=== PATIENT | female | born 1960 | race Caucasian/White ===

== ENCOUNTER 2016-05-03 20:09 | Observation (INO) ==
[2016-05-03] MEDS ORDERED: Ipratropium/Albuterol Neb 3 ML IH ONE (20:45)
[2016-05-03] MEDS ORDERED: Albuterol 2.5 MG/3 ML NEBULIZER IH ONE (20:45)
[2016-05-03 21:15] LABS: Basophils % 0.2 %; Hematocrit 31.8 % (35.3-44.9); Hemoglobin 11.1 g/dL (11.5-15.4); Immature Granulocytes % 0.6 % (0-4); Lymphocytes # 0.8 K/mcL (0.6-4.6); Mean Corpuscular HGB Conc 34.9 g/dL (31.6-35.5); Mean Corpuscular Hemoglobin 32.2 pg (28.0-33.3); Mean Corpuscular Volume 92.2 fL (83.0-100.0); Mean Platelet Volume 11.3 fL (9.4-12.4); Monocytes # 0.2 K/mcL (0.0-1.3); Monocytes % 3.7 %; Neutrophils # 4.1 K/mcL (1.6-8.9); Nucleated Red Blood Cells 0.6 /100 WBC (0); Red Blood Count 3.45 M/mcL (3.82-4.97); Red Cell Distribution Width 13.1 % (11.5-14.5); Segmented Neutrophils % 80.5 %
[2016-05-03 21:16] LABS: Platelet Count 69 K/mcL (140-400)
[2016-05-03 21:18] LABS: Platelet Estimate Decreased (Normal)
[2016-05-03 21:34] LABS: Alanine Aminotransferase 6 Units/L (0-55); Albumin 3.3 g/dL (3.5-5.0); Albumin/Globulin Ratio 0.8 (1.1-2.2); Alkaline Phosphatase 70 Units/L (38-126); Aspartate Amino Transferase 8 Units/L (5-34); BUN/Creatinine Ratio 7 (6-26); Bilirubin,Total 0.3 mg/dL (0.2-1.2); Blood Urea Nitrogen 4 mg/dL (7-20); Calcium 9.1 mg/dL (8.6-10.8); Carbon Dioxide 29 mEq/L (19-29); Chloride 81 mEq/L (98-109); Globulin 4.3 g/dL (2.4-3.5); Glucose 145 mg/dL (70-99); Osmolality,Calculated 253 (280-300); Potassium 4.4 mEq/L (3.5-4.5); Sodium 122 mEq/L (136-145); Total Protein 7.6 g/dL (6.0-8.3); eGFR For African Americans > 60 (> 60); eGFR For Non-African Americans > 60 (> 60)
[2016-05-03] MEDS ORDERED: Azithromycin 500 MG in D5% in Water 250 ML IVPB ONE (22:32)
[2016-05-03] MEDS ORDERED: CefTRIAXone 1,000 MG in D5% in Water (Mini-Bag+) 100 ML IVPB ONE (22:32)
--- NOTE | 2016-05-03 22:46 | Emergency Department Note ---
Disposition Clinical Impression: Pneumonia Qualifiers: Pneumonia type: due to unspecified organism Laterality: bilateral Lung location : lower lobe of lung Qualified Code(s): J18.9 - Pneumonia, unspecified organism Disposition: Admitted As Inpatient Condition: Good Referrals: Arnold Meraz DO [Primary Care Provider] - Forms: ED Satisfaction Letter Time of Disposition: 22:49 SOB HPI - General Chief Complaint: ED Shortness of Breath/Dyspnea Stated Complaint: Dyspnea onset 2 weeks Time Seen by Provider: 05/03/16 20:35 Source: patient Mode of arrival: ambulatory Limitations: no limitations Nursing Notes Reviewed: Yes Vital Signs Reviewed: Yes - History of Present Illness 55-year-old white female with a four-day history of a cough and difficulty breathing. Her cough is productive yellow sputum. She denies chest pain. No fever. She feels weaker than usual. She short of breath with any exertion. She saw her primary care provider today who felt that she had pneumonia. She did get the flu vaccine. Pt Subjective Complaint: shortness of breath, cough Onset (ago): day(s) Context: recent illness (4) Severity: moderate Consistency/Duration: constant Improves with: oxygen, rest Worsens with: lying flat, movement, coughing Known history of: COPD, congestive heart failure Associated symptoms: Reports: denies other symptoms Treatment prior to arrival: oxygen, bronchodilator Cough present: Yes Cough Description: Involuntary Cough Frequency: Intermittent Sputum production: Yes Sputum Color: Yellow - Related Data Home oxygen amount: 3 liters Home Medications Medication Instructions Recorded Confirmed Butalb/Acetaminophen/Caffeine 1 each PO Q4HR PRN 05/06/15 05/03/16 [Fioricet 50-300-40 mg Capsule] Carvedilol [Coreg] 6.25 mg PO BIDWM 05/06/15 05/03/16 Cholecalciferol (Vitamin D3) 4,000 unit PO DAILY 05/06/15 05/03/16 [Vitamin D3] Clopidogrel [Plavix] 75 mg PO DAILY 05/06/15 05/03/16 Divalproex Sodium [Depakote] 500 mg PO TID 05/06/15 05/03/16 Gabapentin [Neurontin] 300 mg PO TID 05/06/15 05/03/16 Isosorbide MONOnitrate [Isosorbide 120 mg PO DAILY 05/06/15 05/03/16 Mononitrate ER] LevETIRAcetam [Keppra] 500 mg PO BID 05/06/15 05/03/16 Levothyroxine Sodium [Tirosint] 112 mcg PO DAILY 05/06/15 05/03/16 Nystatin POWDER [Nystop] 100,000 unit TP DAILY PRN 05/06/15 05/03/16 Olopatadine HCl [Pataday] 1 pack BOTH EYES DAILY PRN 05/06/15 05/03/16 Oxybutynin Chloride [Ditropan Xl] 10 mg PO BID 05/06/15 05/03/16 Oxygen 3 appl .ROUTE AD 05/06/15 05/03/16 Phenytoin Sodium Extended 200 mg PO TID 05/06/15 05/03/16 [Phenytek] Potassium Chloride [Klor-Con] 20 meq PO TID 05/06/15 05/03/16 Pravastatin Sodium [Pravachol] 40 mg PO DAILY 05/06/15 05/03/16 Albuterol Sulfate [Proair Hfa] 2 puff IH Q4H PRN 05/07/15 05/03/16 Fluticasone/Salmeterol [Advair Hfa 2 puff IH BID 05/07/15 05/03/16 230-21 Mcg Inhaler] Tiotropium [Spiriva] 18 mcg IH DAILY 05/07/15 05/03/16 Albuterol Neb [AccuNeb] 0.63 mg IH TID 08/03/15 05/03/16 Alprazolam [Xanax 0.5 MG Tablet] 0.5 mg PO QID 08/03/15 05/03/16 Montelukast [Singulair] 10 mg PO DAILY 08/03/15 05/03/16 Carbidopa/Levodopa 25/250 [Sinemet 1 each PO DAILY 11/30/15 05/03/16 25/250] Roflumilast [Daliresp] 500 mcg PO DAILY 11/30/15 05/03/16 Previous Rx's Medication Instructions Recorded Folic Acid 1 mg PO DAILY #90 tablet 10/06/15 Cyanocobalamin (B-12) [Vitamin B12] 1,000 mcg IM QMONTH #12 vial 04/10/16 Allergies Allergy/AdvReac Type Severity Reaction Status Date / Time haloperidol [From Haldol] AdvReac Numbness Verified 03/21/16 14:04 levofloxacin [From Levaquin] AdvReac Seizure Verified 03/21/16 14:04 ziprasidone [From Geodon] AdvReac Rash Verified 03/21/16 14:04 All systems ED: reviewed and negative except as stated. Constitutional: Denies: fever, chills Eyes: Denies: eye discharge ENT ED: Denies: ear pain, throat pain Cardiovascular: Denies: chest pain Respiratory: Reports: cough, dyspnea, wheezes, sputum production Gastrointestinal: Denies: abdominal pain, nausea, vomiting Integumentary: Denies: rash Neurological: Reports: weakness. Denies: headache Endocrine: Reports: fatigue Past Medical History - Past Medical History Medical history: Reports: non-contributory Surgical history: Reports: non-contributory, hysterectomy Psychiatric history: Reports: no psych history - Social History Smoking Status: Former smoker Smokeless Tobacco Status: No Alcohol use: Reports: none Drug use: Reports: none Physical Exam - General Limitations: no limitations General appearance: alert, in no apparent distress - Head Head exam: atraumatic, normocephalic - Eye Eye exam: Present: PERRL, EOMI. Absent: scleral icterus, conjunctival injection - ENT ENT exam: normal oropharynx, mucous membranes moist - Neck Neck exam: Present: normal inspection, full ROM, trachea midline - Chest Chest inspection: Present: normal inspection, symmetric chest wall rise - Respiratory Respiratory exam: Present: respiratory distress (Mildly dyspneic), wheezes ( Moderate bilateral expiratory), prolonged expiratory phase, other (Increased breath sounds in the bases with basilar rales) - Cardiovascular Cardiovascular exam: Present: regular rate, normal rhythm, normal heart sounds - Abdominal Exam Abdominal exam: Present: soft, Non-Tender, normal bowel sounds, other (Obese) - Extremities Exam Extremities exam: Present: normal capillary refill, pedal edema (Nonpitting edema lower legs feet and ankle). Absent: tenderness, calf tenderness - Neurological Exam Neurological exam: Present: alert, oriented X3. Absent: motor sensory deficit - Psychiatric Psychiatric exam: Present: flat affect - Skin Skin exam: Present: warm, dry, intact. Absent: cyanosis, diaphoresis Course Vital Signs Temperature 98.5 F 05/03/16 20:10 Pulse Rate 114 05/03/16 20:10 Respiratory Rate 20 05/03/16 20:10 Blood Pressure 151/80 05/03/16 20:10 O2 Sat by Pulse Oximetry 95 05/03/16 20:10 Temperature 98.5 F 05/03/16 20:41 Pulse Rate 114 05/03/16 20:41 Respiratory Rate 20 05/03/16 20:41 Blood Pressure 151/80 05/03/16 20:41 O2 Sat by Pulse Oximetry 93 L 05/03/16 20:50 Oxygen Delivery Oxygen Delivery Nasal Cannula Shortness of Breath/Dyspnea - MDM Narrative Medical decision making narrative: The differential includes but is not limited to congestive heart failure, pneumonia, COPD exacerbation, bronchitis with bronchospasm, pneumothorax, pleural effusion. Patient clinical picture and x-ray she either has a bronchitis with bronchospasm or a basilar pneumonia with bronchospasm. I am going to cover for pneumonia. Blood cultures were obtained. She was given Rocephin and azithromycin. She was given bronchodilators and Solu-Medrol. I spoke with Dr. Underwood. He is accepted patient for admission. - Lab Data Lab results reviewed: Yes I reviewed the patient's lab results. Result diagrams: 05/03/16 20:45 05/03/16 21:00 Lab Results 05/03/16 05/03/16 05/03/16 Range/Units 20:45 21:00 21:00 WBC 5.1 (4.3-11.1) K/mcL RBC 3.45 L (3.82-4.97) M/mcL Hgb 11.1 L (11.5-15.4) g/dL Hct 31.8 L (35.3-44.9) % MCV 92.2 (83.0-100.0) fL MCH 32.2 (28.0-33.3) pg MCHC 34.9 (31.6-35.5) g/dL RDW 13.1 (11.5-14.5) % Plt Count 69 L (140-400) K/mcL MPV 11.3 (9.4-12.4) fL Immature Gran % 0.6 (0-4) % Seg Neutrophils % 80.5 % Lymphocytes % 15.0 % Monocytes % 3.7 % Eosinophils % 0.0 % Basophils % 0.2 % Neutrophils # 4.1 (1.6-8.9) K/mcL Lymphocytes # 0.8 (0.6-4.6) K/mcL Monocytes # 0.2 (0.0-1.3) K/mcL Eosinophils # 0.0 (0.0-0.6) K/mcL Basophils # 0.0 (0.0-0.2) K/mcL Nucleated RBCs/100 WBC 0.6 H (0) /100 WBC Platelet Estimate Decreased L (Normal) Sodium 122 L (136-145) mEq/L Potassium 4.4 (3.5-4.5) mEq/L Chloride 81 L (98-109) mEq/L Carbon Dioxide 29 (19-29) mEq/L BUN 4 L (7-20) mg/dL Creatinine 0.58 (0.57-1.11) mg/dL Est GFR ( Amer) > 60 (> 60) Est GFR (Non-Af Amer) > 60 (> 60) BUN/Creatinine Ratio 7 (6-26) Glucose 145 H (70-99) mg/dL Calculated Osmolality 253 L (280-300) Calcium 9.1 (8.6-10.8) mg/dL Total Bilirubin 0.3 (0.2-1.2) mg/dL AST 8 (5-34) Units/L ALT 6 (0-55) Units/L Alkaline Phosphatase 70 (38-126) Units/L Troponin I 0.01 (0-0.03) ng/mL B-Natriuretic Peptide (0-100) pg/mL Serum Total Protein 7.6 (6.0-8.3) g/dL Albumin 3.3 L (3.5-5.0) g/dL Globulin 4.3 H (2.4-3.5) g/dL Albumin/Globulin Ratio 0.8 L (1.1-2.2) 05/03/16 Range/Units 21:00 WBC (4.3-11.1) K/mcL RBC (3.82-4.97) M/mcL Hgb (11.5-15.4) g/dL Hct (35.3-44.9) % MCV (83.0-100.0) fL MCH (28.0-33.3) pg MCHC (31.6-35.5) g/dL RDW (11.5-14.5) % Plt Count (140-400) K/mcL MPV (9.4-12.4) fL Immature Gran % (0-4) % Seg Neutrophils % % Lymphocytes % % Monocytes % % Eosinophils % % Basophils % % Neutrophils # (1.6-8.9) K/mcL Lymphocytes # (0.6-4.6) K/mcL Monocytes # (0.0-1.3) K/mcL Eosinophils # (0.0-0.6) K/mcL Basophils # (0.0-0.2) K/mcL Nucleated RBCs/100 WBC (0) /100 WBC Platelet Estimate (Normal) Sodium (136-145) mEq/L Potassium (3.5-4.5) mEq/L Chloride (98-109) mEq/L Carbon Dioxide (19-29) mEq/L BUN (7-20) mg/dL Creatinine (0.57-1.11) mg/dL Est GFR ( Amer) (> 60) Est GFR (Non-Af Amer) (> 60) BUN/Creatinine Ratio (6-26) Glucose (70-99) mg/dL Calculated Osmolality (280-300) Calcium (8.6-10.8) mg/dL Total Bilirubin (0.2-1.2) mg/dL AST (5-34) Units/L ALT (0-55) Units/L Alkaline Phosphatase (38-126) Units/L Troponin I (0-0.03) ng/mL B-Natriuretic Peptide 160 H (0-100) pg/mL Serum Total Protein (6.0-8.3) g/dL Albumin (3.5-5.0) g/dL Globulin (2.4-3.5) g/dL Albumin/Globulin Ratio (1.1-2.2) - Radiology Data Radiology results reviewed: Yes I reviewed the patient's radiology results. ITS Impressions Chest X-Ray 05/03/16 20:45 IMPRESSION: Mild increased opacity in the lung bases, either due to soft tissue artifact or developing airspace disease. Mild prominence of the pulmonary vasculature, either due to low lung volumes or mild edema. D/ / Luis Alcaraz MD / Luis Alcaraz MD Interpreting Provider: Luis Alcaraz MD - EKG Data EKG attestation: Yes I reviewed and interpreted this EKG. EKG results narrative: Sinus rhythm rate of 67, poor R-wave progression, age undetermined. Rhythm strip shows a sinus rhythm with a rate of 67, MD interval is 180 ms, QRS 82 ms with no other ectopy as interpreted by me.
[2016-05-04] MEDS ORDERED: Acetaminophen/Butalbital/CaffeineTABLET PO PRN (00:46)
[2016-05-04] MEDS ORDERED: METHYLPREDNISOLONE IVPB SCH (00:46)
[2016-05-04] MEDS ORDERED: Naloxone 0.4 MG/ML INJ IVP PRN (00:46)
[2016-05-04] MEDS ORDERED: SODIUM CHLORIDE 0.9% IVPB SCH (00:46)
[2016-05-04] MEDS ORDERED: [UNRECOGNIZED DRUG - OTHER] OP PRN (00:46)
[2016-05-04] MEDS ORDERED: Nystatin POWDER 30 GM BOTTLE TP PRN (00:46)
[2016-05-04] MEDS: Ipratropium/Albuterol Neb 3 ML IH SCH ×3 (04:28→13:04)
[2016-05-04] MEDS: LevETIRAcetam 250 MG TABLET PO SCH ×2 (08:13→20:46)
[2016-05-04] MEDS: Divalproex (12 HR) 250 MG TABLET PO SCH ×3 (08:14→20:46)
[2016-05-04] MEDS: Cholecalciferol (D-3) 1,000 UNIT TABLET PO SCH (08:14)
[2016-05-04] MEDS: Gabapentin 300 MG CAPSULE PO SCH ×3 (08:15→20:47)
[2016-05-04] MEDS: Isosorbide MONOnitrate (24 HR) 60 MG TAB.ER.24H PO SCH (08:16)
[2016-05-04] MEDS: Folic Acid 1 MG TABLET PO SCH (08:16)
[2016-05-04] MEDS ORDERED: Carbidopa/Levodopa 25/250 TABLET PO SCH (09:00)
[2016-05-04] MEDS ORDERED: Cyanocobalamin (B-12) 1,000 MCG/ML VIAL IM SCH (09:00)
--- NOTE | 2016-05-04 15:16 | Internal Med History&Physical ---
Date of Encounter: 05/04/16 Time of Encounter: 14:40 Assessment and Plan (1) Pneumonia Current visit: Yes Status: Acute She has been started on Rocephin and Zithromax. I will add lactobacillus. Further workup will be done as needed. Qualifiers: Pneumonia type: due to unspecified organism Laterality: bilateral Lung location: lower lobe of lung Qualified Code(s): J18.9 - Pneumonia, unspecified organism (2) Hypothyroidism Current visit: No Status: Chronic We will check TSH in a.m. Her level was 7.493 on 07/30/2015. Qualifiers: Hypothyroidism type: unspecified Qualified Code(s): E03.9 - Hypothyroidism , unspecified (3) HTN (hypertension) Current visit: No Status: Chronic Continue Coreg and monitor blood pressure Qualifiers: Hypertension type: essential hypertension Qualified Code(s): I10 - Essential (primary) hypertension (4) Hyponatremia Current visit: Yes Status: Acute She reports taking Bumex 4 mg twice a day. We will hold this and recheck labs in a.m. (5) Diabetes mellitus Current visit: No Status: Suspected Hemoglobin A1c was 6.0% on 08/17/2015. We will recheck in a.m. Qualifiers: Diabetes mellitus type: type 2 Diabetes mellitus complication status: without complication Diabetes mellitus terminal system operator insulin use: without terminal system operator use Qualified Code(s): E11.9 - Type 2 diabetes mellitus without complications Internal Medicine - H&P: HPI Chief complaint: Dyspnea Admitted From: Home Plans for Post Hospital Care: Home History of present illness: Ms. Ramires is a 55 year old female who came to emergency room stay she had worsening dyspnea over the preceding week. She had cough productive of brown reddish sputum. The dyspnea seemed to worsen on exertion. She was evaluated in emergency room and felt to have possible bibasilar pneumonia. She was admitted to [facility] floor for ongoing care needs. Respiratory history is significant for having smoked from age [age] up to 3 packs per day. She had pulmonary function tests May 2015 which showed obstructive lung disease. She wears oxygen at home 24/ at 3 L/m. She states her breathing has improved since admission but she does not feel quite back to her baseline. Past Med Surg Social Fam HX - Past Medical History Medical history: arthritis, CHF, COPD, DVT, diabetes, hyperlipidemia, hypertension, myocardial infarction, seizures, thyroid disease Psychiatric history: anxiety, depression - Past Surgical History Surgical History: hysterectomy - Social History Smoking Status: Former smoker Smokeless Tobacco Status: No Alcohol use: none Drug use: none Internal Medicine - H&P: Meds Butalb/Acetaminophen/Caffeine [Fioricet 50-300-40 mg Capsule] 1 each PO Q4HR PRN 05/06/15 [History] Carvedilol [Coreg] 6.25 mg PO BIDWM 05/06/15 [History] Cholecalciferol (Vitamin D3) [Vitamin D3] 4,000 unit PO DAILY 05/06/15 [History] Clopidogrel [Plavix] 75 mg PO DAILY 05/06/15 [History] Divalproex Sodium [Depakote] 500 mg PO TID 05/06/15 [History] Gabapentin [Neurontin] 300 mg PO TID 05/06/15 [History] Isosorbide MONOnitrate [Isosorbide Mononitrate ER] 120 mg PO DAILY 05/06/15 [ History] LevETIRAcetam [Keppra] 500 mg PO BID 05/06/15 [History] Levothyroxine Sodium [Tirosint] 112 mcg PO DAILY 05/06/15 [History] Nystatin POWDER [Nystop] 100,000 unit TP DAILY PRN 05/06/15 [History] Olopatadine HCl [Pataday] 1 pack BOTH EYES DAILY PRN 05/06/15 [History] Oxybutynin Chloride [Ditropan Xl] 10 mg PO BID 05/06/15 [History] Oxygen 3 appl .ROUTE AD 05/06/15 [History] Phenytoin Sodium Extended [Phenytek] 200 mg PO TID 05/06/15 [History] Potassium Chloride [Klor-Con] 20 meq PO TID 05/06/15 [History] Pravastatin Sodium [Pravachol] 40 mg PO DAILY 05/06/15 [History] Albuterol Sulfate [Proair Hfa] 2 puff IH Q4H PRN 05/07/15 [History] Fluticasone/Salmeterol [Advair Hfa 230-21 Mcg Inhaler] 2 puff IH BID 05/07/15 [ History] Tiotropium [Spiriva] 18 mcg IH DAILY 05/07/15 [History] Albuterol Neb [AccuNeb] 0.63 mg IH TID 08/03/15 [History] Alprazolam [Xanax 0.5 MG Tablet] 0.5 mg PO QID 08/03/15 [History] Montelukast [Singulair] 10 mg PO DAILY 08/03/15 [History] Folic Acid 1 mg PO DAILY #90 tablet 10/06/15 [Rx] Carbidopa/Levodopa 25/250 [Sinemet 25/250] 1 each PO DAILY 11/30/15 [History] Roflumilast [Daliresp] 500 mcg PO DAILY 11/30/15 [History] Cyanocobalamin (B-12) [Vitamin B12] 1,000 mcg IM QMONTH #12 vial 04/10/16 [Rx] Allergies haloperidol [From Haldol] Adverse Reaction (Verified 03/21/16 14:04) Numbness levofloxacin [From Levaquin] Adverse Reaction (Verified 03/21/16 14:04) Seizure ziprasidone [From Geodon] Adverse Reaction (Verified 03/21/16 14:04) Rash All Systems PM: A 10-system review of systems was performed and is negative for pertinent findings except as documented above in the HPI. Review of systems: Gen.: She states her weight has decreased approximately 24 pounds in the past year, intentionally Cardiovascular: She has history of hypertension and claims she had myocardial infarction at age 25. She states she had a heart catheter in 2009 at [facility] with showed no significant CAD requiring intervention. Echocardiogram was done 06/07 which showed LVEF of 55% with hypokinesis of the basal inferior wall. There was moderate LV diastolic dysfunction. There was mild AF, AI, and MR. She has not had DVT or pulmonary emboli. Respiratory: As per history of present illness GI: She states she has a pancreatic cyst. She denies disorders of her liver gallbladder or exocrine pancreas otherwise : She has had prolapsed bladder and had bladder tuck surgery. She has urge incontinence. She denies other kidney or bladder disorders Neurologic: She is been diagnosed with Parkinson's disease. She has history of seizures with her last seizure more than 3 months ago. She denies large distribution strokes Endocrine: She has hypothyroidism and hyperlipidemia but no known diabetes. Hematology/oncology: She has been diagnosed with anemia and thrombocytopenia felt to be multifactorial in origin. She denies internal malignancies Psychiatric: She has anxiety and bipolar disorder Musculoskeletal: She has rheumatoid arthritis and DJD diagnoses. - Constitutional Vitals: Temp Pulse Resp BP Pulse Ox 97.6 F 58 16 120/74 96 05/04/16 10:58 05/04/16 10:58 05/04/16 13:07 05/04/16 10:58 05/04/16 13:07 Exam: General: She is a well-developed obese female lying in bed who appears in no severe distress at present time HEENT: Head is atraumatic and normocephalic. Eyes: EOMI. There is no scleral icterus. Mouth: Mucosa is moist. Neck: Supple and nontender. There is no thyromegaly or adenopathy noted. Heart: Regular without murmurs gallops or ectopics. Lungs: No wheezes or crackles are heard. Abdomen: Soft and nontender. No masses or guarding are noted. Extremities: There is no cyanosis edema or clubbing noted. Dorsalis pedis and posterior tibial pulses are 1-2 over 2 bilaterally. Neurologic: Mental status: She is talkative and a good historian. Cranial nerves: Smile is symmetric. Forehead wrinkles bilaterally. Tongue protrudes midline. EOMI. Motor: There is no pronator drift. Cerebellar: Finger to nose intact bilaterally. Skin: Warm and dry Internal Med - H&P Results - Labs CBC & Chem 7: 05/03/16 20:45 05/03/16 21:00
--- NOTE | 2016-05-04 18:12 | Electrocardiograph Report ---
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
[2016-05-04] MEDS: Carbidopa/Levodopa 25/250 TABLET PO SCH (20:46)
[2016-05-04] MEDS: Lactobacillus 1 EACH CAP.SPRINK PO SCH (20:47)
[2016-05-04] MEDS ORDERED: CefTRIAXone 1,000 MG in D5% in Water (Mini-Bag+) 100 ML IVPB SCH (22:00)
[2016-05-04] MEDS ORDERED: Azithromycin 500 MG in D5% in Water 250 ML IVPB SCH (23:00)
[2016-05-05 04:37] VITALS: BP 150/70
[2016-05-05 05:46] LABS: Basophils % 0.2 %; Eosinophils % 0.2 %; Hematocrit 31.2 % (35.3-44.9); Hemoglobin 10.7 g/dL (11.5-15.4); Immature Granulocytes % 0.2 % (0-4); Lymphocytes % 33.9 %; Mean Corpuscular HGB Conc 34.3 g/dL (31.6-35.5); Mean Corpuscular Hemoglobin 32.3 pg (28.0-33.3); Mean Corpuscular Volume 94.3 fL (83.0-100.0); Mean Platelet Volume 11.2 fL (9.4-12.4); Monocytes # 1.5 K/mcL (0.0-1.3); Monocytes % 17.3 %; Neutrophils # 4.2 K/mcL (1.6-8.9); Nucleated Red Blood Cells 0.2 /100 WBC (0); Red Blood Count 3.31 M/mcL (3.82-4.97); Red Cell Distribution Width 13.7 % (11.5-14.5); Segmented Neutrophils % 48.2 %
[2016-05-05 06:02] LABS: BUN/Creatinine Ratio 13 (6-26); Blood Urea Nitrogen 8 mg/dL (7-20); Calcium 9.4 mg/dL (8.6-10.8); Carbon Dioxide 31 mEq/L (19-29); Chloride 88 mEq/L (98-109); Glucose 104 mg/dL (70-99); Magnesium 2.1 mg/dL (1.6-2.6); Osmolality,Calculated 269 (280-300); Potassium 4.4 mEq/L (3.5-4.5); Sodium 130 mEq/L (136-145); eGFR For African Americans > 60 (> 60); eGFR For Non-African Americans > 60 (> 60)
[2016-05-05 06:19] LABS: Platelet Count 86 K/mcL (140-400)
[2016-05-05 06:24] LABS: Thyroid Stimulating Hormone 4.499 mcIU/mL (0.350-4.840)
[2016-05-05] MEDS: Divalproex (12 HR) 250 MG TABLET PO SCH (08:15)
[2016-05-05] MEDS: Lactobacillus 1 EACH CAP.SPRINK PO SCH (08:17)
[2016-05-05] MEDS: LevETIRAcetam 250 MG TABLET PO SCH (08:17)
[2016-05-05] MEDS: Folic Acid 1 MG TABLET PO SCH (08:17)
[2016-05-05] MEDS: Cholecalciferol (D-3) 1,000 UNIT TABLET PO SCH (08:18)
[2016-05-05] MEDS: Isosorbide MONOnitrate (24 HR) 60 MG TAB.ER.24H PO SCH (08:18)
[2016-05-05] MEDS: Carbidopa/Levodopa 25/250 TABLET PO SCH (08:19)
[2016-05-05] MEDS: Gabapentin 300 MG CAPSULE PO SCH (08:19)
[2016-05-05 09:02] LABS: Hemoglobin A1C 5.1 %
[2016-05-05] MEDS ORDERED: Albuterol 2.5 MG/3 ML NEBULIZER IH PRN (09:18)
[2016-05-05 09:49] LABS: Folate 14.9 ng/mL (7.0-31.4)
[2016-05-05 11:27] LABS: % Iron Saturation 26 % (15-50); Iron 85 mcg/dL (50-170); Transferrin 230 mg/dL (180-382)
[2016-05-05 11:52] LABS: Ferritin 143 ng/ml (5-204)
--- NOTE | 2016-05-05 12:25 | Discharge Summary ---
Date of Encounter: 05/05/16 Time of Encounter: 12:12 - Discharge Diagnosis (1) Pneumonia Priority: Primary Status: Acute Qualifiers: Pneumonia type: due to unspecified organism Laterality: bilateral Lung location: lower lobe of lung Qualified Code(s): J18.9 - Pneumonia, unspecified organism (2) Hypothyroidism Priority: Secondary Status: Chronic Qualifiers: Hypothyroidism type: unspecified Qualified Code(s): E03.9 - Hypothyroidism , unspecified (3) HTN (hypertension) Priority: Secondary Status: Chronic Qualifiers: Hypertension type: essential hypertension Qualified Code(s): I10 - Essential (primary) hypertension (4) Hyponatremia Priority: Secondary Status: Acute (5) Diabetes mellitus Priority: Secondary Status: Suspected Qualifiers: Diabetes mellitus type: type 2 Diabetes mellitus complication status: without complication Diabetes mellitus extermination supervisor insulin use: without penitentiary use Qualified Code(s): E11.9 - Type 2 diabetes mellitus without complications - Discharge Medications Prescriptions: Cefuroxime PO [Ceftin] 500 mg PO Q12HR #10 tablet Azithromycin [Zithromax] 250 mg PO Q24H #5 tablet Bumetanide [Bumex] 2 mg PO DAILY 365 Days Lactobacillus [Culturelle] 1 each PO BID #10 cap.sprink Home Medications: Butalb/Acetaminophen/Caffeine [Fioricet 50-300-40 mg Capsule] 1 each PO Q4HR PRN 05/06/15 [History] Carvedilol [Coreg] 6.25 mg PO BIDWM 05/06/15 [History] Cholecalciferol (Vitamin D3) [Vitamin D3] 4,000 unit PO DAILY 05/06/15 [History] Clopidogrel [Plavix] 75 mg PO DAILY 05/06/15 [History] Divalproex Sodium [Depakote] 500 mg PO TID 05/06/15 [History] Gabapentin [Neurontin] 300 mg PO TID 05/06/15 [History] Isosorbide MONOnitrate [Isosorbide Mononitrate ER] 120 mg PO DAILY 05/06/15 [ History] LevETIRAcetam [Keppra] 500 mg PO BID 05/06/15 [History] Levothyroxine Sodium [Tirosint] 112 mcg PO DAILY 05/06/15 [History] Nystatin POWDER [Nystop] 100,000 unit TP DAILY PRN 05/06/15 [History] Olopatadine HCl [Pataday] 1 pack BOTH EYES DAILY PRN 05/06/15 [History] Oxybutynin Chloride [Ditropan Xl] 10 mg PO BID 05/06/15 [History] Oxygen 3 appl .ROUTE AD 05/06/15 [History] Phenytoin Sodium Extended [Phenytek] 200 mg PO TID 05/06/15 [History] Potassium Chloride [Klor-Con] 20 meq PO TID 05/06/15 [History] Pravastatin Sodium [Pravachol] 40 mg PO DAILY 05/06/15 [History] Albuterol Sulfate [Proair Hfa] 2 puff IH Q4H PRN 05/07/15 [History] Fluticasone/Salmeterol [Advair Hfa 230-21 Mcg Inhaler] 2 puff IH BID 05/07/15 [ History] Tiotropium [Spiriva] 18 mcg IH DAILY 05/07/15 [History] Albuterol Neb [AccuNeb] 0.63 mg IH TID 08/03/15 [History] Alprazolam [Xanax 0.5 MG Tablet] 0.5 mg PO QID 08/03/15 [History] Montelukast [Singulair] 10 mg PO DAILY 08/03/15 [History] Folic Acid 1 mg PO DAILY #90 tablet 10/06/15 [Rx] Carbidopa/Levodopa 25/250 [Sinemet 25/250] 1 each PO DAILY 11/30/15 [History] Roflumilast [Daliresp] 500 mcg PO DAILY 11/30/15 [History] Cyanocobalamin (B-12) [Vitamin B12] 1,000 mcg IM QMONTH #12 vial 04/10/16 [Rx] Azithromycin [Zithromax] 250 mg PO Q24H #5 tablet 05/05/16 [Rx] Bumetanide [Bumex] 2 mg PO DAILY 365 Days 05/05/16 [Rx] Cefuroxime PO [Ceftin] 500 mg PO Q12HR #10 tablet 05/05/16 [Rx] Lactobacillus [Culturelle] 1 each PO BID #10 cap.sprink 05/05/16 [Rx] Allergies/Adverse Reactions: Allergies haloperidol [From Haldol] Adverse Reaction (Verified 03/21/16 14:04) Numbness levofloxacin [From Levaquin] Adverse Reaction (Verified 03/21/16 14:04) Seizure ziprasidone [From Geodon] Adverse Reaction (Verified 03/21/16 14:04) Rash Date of admission: 05/04/16 00:36 Primary care physician: Arnold Meraz DO Consults: 05/04/16 01:28 Consult to Release Engineer [CONS] Routine Reason for SW Consult: D/C planning - coordination of care - pt receives services through [address] and homemaking - Patient Status Disposition: Home, Self-Care Condition: Good Overall status at discharge: patient is progressing back to baseline - Discharge Instructions Follow Up With: Arnold Meraz DO [Primary Care Provider] - 1 week - Diet and Activity Activity: resume usual activities as tolerated Diet: advance to your usual diet Hospital course: Ms. Ramires is a 55 year old female who came to emergency room stating she had worsening dyspnea over the preceding week. She had cough productive of brown reddish sputum. The dyspnea seemed to worsen on exertion. She was evaluated in emergency room and felt to have possible bibasilar pneumonia. She was admitted to [facility] floor for ongoing care needs. Initial orders were written by the emergency room physician. I saw her on May 04 and performed a history and physical. She was started on Rocephin and Zithromax. Lactobacillus was given. She remained afebrile during her hospital stay. Her dyspnea had improved when I saw her on May 05 and she felt stable for discharge home which I feel is reasonable. She will continue with antibiotic and probiotic for 5 additional days after discharge. TSH returned normal at 4.499. Her present dose Synthroid will be continued. Her sodium improved to 130 on the day of discharge. She reported taking Bumex 4 mg twice a day at home. I will decrease the dose to 2 mg daily and her PCP can monitor labs as needed. [place] A1c returned to acceptable at 5.1%. She will follow with her PCP Dr. Arnold Meraz within 1 week. - Time Spent with Patient Total time spent providing and/or coordinating discharge services: - Constitutional Vitals: Temp Pulse Resp BP Pulse Ox 99.5 F 66 18 150/70 93 L 05/05/16 11:58 05/05/16 11:58 05/05/16 11:58 05/05/16 04:35 05/05/16 11:58
== END 2016-05-05 14:30 | disposition home or self-care (01) ==
LOC: EMEROOPIK 20:09 → INPPIK 20:09
PROVIDERS: ADMIT Internal Medicine; ATTEND Internal Medicine

== ENCOUNTER 2016-10-14 13:10 | Observation (INO) ==
--- NOTE | 2016-10-14 13:17 | Emergency Department Note ---
Disposition Clinical Impression: Hyponatremia Community acquired pneumonia Qualifiers: Laterality: left Lung location: lower lobe of lung Qualified Code(s): J18.1 - Lobar pneumonia, unspecified organism Disposition: Admitted As Inpatient Condition: Fair Referrals: Arnold Meraz DO [Primary Care Provider] - Forms: ED Satisfaction Letter SOB HPI - General Chief Complaint: ED Shortness of Breath/Dyspnea Stated Complaint: SOB Time Seen by Provider: 10/14/16 13:13 Source: patient, EMS Mode of arrival: EMS Limitations: no limitations Nursing Notes Reviewed: Yes Vital Signs Reviewed: Yes - History of Present Illness Patient reports she has had increased cough and shortness of breath for couple days. She states this got a little worse yesterday she saw her primary care physician who performed an x-ray and start her on antibiotic, steroids and continued her nebulized treatments. She states her shortness breath, worse this morning such that she called the squad to be brought in for evaluation. EMS found her to have oxygenation's of 8889% on her 3 L oxygen by nasal cannula. They did not start an IV, administered Solu-Medrol IV, continued oxygen and administered an albuterol aerosol in transit. The patient arrives stating she still short of breath and is oxygenating similarly at 88-89%. She does have a congested cough. She states her cough is productive of yellow phlegm and she has had chills but no fevers. She denies any chest pain other than soreness with coughing and denies palpitations. Some generalized malaise and weakness but no dizziness or presyncopal complaints. She denies any lower extremity swelling, immobilization or injury. She has abdominal pain, nausea, vomiting or diarrhea. She denies illicit exposures other than her had a recent "sinus infection". Patient's x-ray from yesterday has been reviewed and this is a report as follows : XR/XR chest 2V IMPRESSION: Left lower lobe pneumonia. Radiographic follow-up recommended to ensure resolution. D/ / 10/13/2016 14:36:46 Andrei Zuniga MD / nito Pt Subjective Complaint: shortness of breath, cough Onset (ago): day(s) Context: recent illness Severity: moderate, severe Consistency/Duration: gradually worsening Improves with: oxygen, rest, bronchodilators Worsens with: exertion, movement, coughing Known history of: COPD Associated symptoms: Reports: chest pain (With cough), pain with inspiration, cough, wheezing, sputum production. Denies: fever (Chills), orthopnea, lower extremity pain, polyuria, polydipsia, parasthesias, palpitations, hemoptysis, diaphoresis, nausea/vomiting, syncope, abdominal pain, rash Treatment prior to arrival: oxygen, bronchodilator Cough present: Yes Cough Description: Voluntary, Productive, Hacking, Rattling Cough Frequency: Intermittent Sputum production: Yes Sputum Amount: Moderate Sputum Color: Yellow - Related Data Home oxygen amount: 3 liters Home Medications Medication Instructions Recorded Confirmed Butalb/Acetaminophen/Caffeine 1 each PO Q4HR PRN 05/06/15 10/14/16 [Fioricet 50-300-40 mg Capsule] Carvedilol [Coreg] 6.25 mg PO BIDWM 05/06/15 10/14/16 Cholecalciferol (Vitamin D3) 4,000 unit PO DAILY 05/06/15 10/14/16 [Vitamin D3] Divalproex Sodium [Depakote] 500 mg PO TID 05/06/15 10/14/16 Gabapentin [Neurontin] 300 mg PO TID 05/06/15 10/14/16 Isosorbide MONOnitrate [Isosorbide 120 mg PO DAILY 05/06/15 10/14/16 Mononitrate ER] LevETIRAcetam [Keppra] 500 mg PO BID 05/06/15 10/14/16 Levothyroxine Sodium [Tirosint] 112 mcg PO DAILY 05/06/15 10/14/16 Nystatin POWDER [Nystop] 100,000 unit TP DAILY PRN 05/06/15 10/14/16 Olopatadine HCl [Pataday] 1 pack BOTH EYES DAILY PRN 05/06/15 10/14/16 Oxybutynin Chloride [Ditropan Xl] 10 mg PO BID 05/06/15 10/14/16 Oxygen 3 appl .ROUTE AD 05/06/15 10/14/16 Phenytoin Sodium Extended 200 mg PO TID 05/06/15 10/14/16 [Phenytek] Potassium Chloride [Klor-Con] 20 meq PO TID 05/06/15 10/14/16 Pravastatin Sodium [Pravachol] 40 mg PO DAILY 05/06/15 10/14/16 Albuterol Sulfate [Proair Hfa] 2 puff IH Q4H PRN 05/07/15 10/14/16 Fluticasone/Salmeterol [Advair Hfa 2 puff IH BID 05/07/15 10/14/16 230-21 Mcg Inhaler] Tiotropium [Spiriva] 18 mcg IH DAILY 05/07/15 10/14/16 ALPRAZolam [Xanax 0.5 MG Tablet] 0.5 mg PO QID 08/03/15 10/14/16 Albuterol Neb [AccuNeb] 0.63 mg IH TID 08/03/15 10/14/16 Montelukast [Singulair] 10 mg PO DAILY 08/03/15 10/14/16 Roflumilast [Daliresp] 500 mcg PO DAILY 11/30/15 10/14/16 Aspirin [Lo-Dose Aspirin EC] 81 mg PO HS 06/27/16 10/14/16 Lactobacillus [Culturelle] 1 each PO DAILY 06/27/16 10/14/16 Azithromycin [Zithromax Tri-Simón] 500 mg PO DAILY 10/14/16 10/14/16 Cefdinir [Omnicef] 300 mg PO BID 10/14/16 10/14/16 predniSONE [PredniSONE] 20 mg PO DAILY 10/14/16 10/14/16 Previous Rx's Medication Instructions Recorded Cyanocobalamin (B-12) [Vitamin B12] 1,000 mcg IM QMONTH #12 vial 04/10/16 Bumetanide [Bumex] 2 mg PO DAILY 365 Days 05/05/16 Folic Acid 1 mg PO DAILY #90 tablet 09/26/16 Allergies Allergy/AdvReac Type Severity Reaction Status Date / Time haloperidol [From Haldol] AdvReac Numbness Verified 03/21/16 14:04 levofloxacin [From Levaquin] AdvReac Seizure Verified 03/21/16 14:04 ziprasidone [From Geodon] AdvReac Rash Verified 03/21/16 14:04 All systems ED: reviewed and negative except as stated. Past Medical History - Past Medical History Attestation: Yes The following information was validated with the patient. Source: patient, old records reviewed, obtained from family, nursing notes reviewed Medical history: Reports: arthritis, CHF, COPD, DVT, diabetes, hyperlipidemia, hypertension, myocardial infarction, seizures, thyroid disease Surgical history: Reports: hysterectomy Psychiatric history: Reports: anxiety, depression - Social History Smoking Status: Former smoker Smokeless Tobacco Status: No Alcohol use: Reports: none Drug use: Reports: none Physical Exam - General Limitations: physical limitation (Dyspnea) General appearance: alert, in distress - Head Head exam: atraumatic, normocephalic, normal inspection - Eye Eye exam: Present: normal appearance, PERRL, EOMI. Absent: scleral icterus, conjunctival injection - ENT ENT exam: normal exam, normal oropharynx, mucous membranes moist - Neck Neck exam: Present: normal inspection, full ROM, trachea midline - Chest Chest inspection: Present: normal inspection, symmetric chest wall rise. Absent : tenderness - Respiratory Respiratory exam: Present: respiratory distress, wheezes, prolonged expiratory phase. Absent: stridor, accessory muscle use (Diminished breath sounds in the left base) - Cardiovascular Cardiovascular exam: Present: regular rate, normal rhythm, normal heart sounds. Absent: tachycardia - Abdominal Exam Abdominal exam: Present: soft, Non-Tender, normal bowel sounds. Absent: tenderness, distention, guarding, rebound, rigidity - Extremities Exam Extremities exam: Present: normal inspection, full ROM, normal capillary refill. Absent: tenderness, pedal edema, calf tenderness - Expanded Lower Extremity Exam Neurovascular/Tendon exam: Present: normal capillary refill. Absent: motor deficit, sensory deficit, tendon deficit Gait: not tested/not observed - Neurological Exam Neurological exam: Present: alert, oriented X3 - Psychiatric Psychiatric exam: Present: normal affect, normal mood - Skin Skin exam: Present: warm, dry, intact, cyanosis (Dusky lips on arrival). Absent : diaphoresis, pallor Course Course Narrative: Patient has been started on aggressive respiratory treatment on arrival. She understands that she will need observation in the hospital having failed outpatient treatment and having a definite left lower lobe pneumonia. She has been started on IV fluids, azithromycin orally and Rocephin IV. She has had received Solu-Medrol by EMS and she has been written for an additional DuoNeb aerosol. With return of additional laboratory testing, care will be discussed with Dr. Moore to coordinate her further inpatient treatment. 1400: There has been discussed with Dr. Moore is agreeable with inpatient treatment of this patient. Verbal orders have been obtained for her admission. Vital Signs Temperature 97.1 F L 10/14/16 13:15 Pulse Rate 75 10/14/16 13:15 Respiratory Rate 18 10/14/16 13:15 Blood Pressure 152/78 10/14/16 13:15 O2 Sat by Pulse Oximetry 95 10/14/16 13:15 Temperature 97.1 F L 10/14/16 13:15 Pulse Rate 86 10/14/16 13:53 Respiratory Rate 18 10/14/16 13:53 Blood Pressure 157/84 10/14/16 13:53 O2 Sat by Pulse Oximetry 99 10/14/16 13:53 Oxygen Delivery Oxygen Delivery Room Air Shortness of Breath/Dyspnea - Differential Diagnosis Likely: acute exacerbation of chronic obstructive airways disease, pneumonia, asthma with exacerbation - Medical Records Medical records reviewed: Yes I reviewed the patient's medical records. XR/XR chest 2V IMPRESSION: Left lower lobe pneumonia. Radiographic follow-up recommended to ensure resolution. D/ / 10/13/2016 14:36:46 Andrei Zuniga MD / nito - Lab Data Lab results reviewed: Yes I reviewed the patient's lab results. Result diagrams: 10/14/16 13:36 10/14/16 13:36 Lab Results 10/14/16 10/14/16 10/14/16 Range/Units 13:18 13:36 13:36 WBC 6.2 (4.3-11.1) K/mcL RBC 3.39 L (3.82-4.97) M/mcL Hgb 10.6 L (11.5-15.4) g/dL Hct 30.9 L (35.3-44.9) % MCV 91.2 (83.0-100.0) fL MCH 31.3 (28.0-33.3) pg MCHC 34.3 (31.6-35.5) g/dL RDW 13.2 (11.5-14.5) % Plt Count 70 L (140-400) K/mcL MPV 11.3 (9.4-12.4) fL PT 13.3 H (9.4-12.1) Seconds INR 1.2 APTT 26.9 (26.0-36.0) Seconds ABG pH 7.41 (7.32-7.45) pH Units ABG pCO2 46 H (35-45) mmHg ABG pO2 59 L (85-104) mmHg ABG HCO3 29 H (21-27) mEq/L ABG Total CO2 30.6 H (20-26) mEq/L ABG O2 Saturation 90 L (95-98) % ABG Base Excess 4.6 H (-2.0 to 3.0) mEq/L VBG Lactic Acid (0.5-2.2) mmol/L Liter Flow 2 L/MIN Blood Gas Modality nc Inspired O2 28 % Sodium (136-145) mEq/L Potassium (3.5-4.5) mEq/L Chloride (98-109) mEq/L Carbon Dioxide (19-29) mEq/L BUN (7-20) mg/dL Creatinine (0.57-1.11) mg/dL Est GFR ( Amer) (> 60) Est GFR (Non-Af Amer) (> 60) BUN/Creatinine Ratio (6-26) Glucose (70-99) mg/dL Calculated Osmolality (280-300) Calcium (8.6-10.8) mg/dL Total Bilirubin (0.2-1.2) mg/dL Direct Bilirubin (0.0-0.5) mg/dL Indirect Bilirubin (0.0-1.2) mg/dL AST (5-34) Units/L ALT (0-55) Units/L Alkaline Phosphatase (38-126) Units/L Troponin I (0-0.03) ng/mL Serum Total Protein (6.0-8.3) g/dL Albumin (3.5-5.0) g/dL Globulin (2.4-3.5) g/dL Albumin/Globulin Ratio (1.1-2.2) 10/14/16 10/14/16 10/14/16 Range/Units 13:36 13:36 13:36 WBC (4.3-11.1) K/mcL RBC (3.82-4.97) M/mcL Hgb (11.5-15.4) g/dL Hct (35.3-44.9) % MCV (83.0-100.0) fL MCH (28.0-33.3) pg MCHC (31.6-35.5) g/dL RDW (11.5-14.5) % Plt Count (140-400) K/mcL MPV (9.4-12.4) fL PT (9.4-12.1) Seconds INR APTT (26.0-36.0) Seconds ABG pH (7.32-7.45) pH Units ABG pCO2 (35-45) mmHg ABG pO2 (85-104) mmHg ABG HCO3 (21-27) mEq/L ABG Total CO2 (20-26) mEq/L ABG O2 Saturation (95-98) % ABG Base Excess (-2.0 to 3.0) mEq/L VBG Lactic Acid 1.3 (0.5-2.2) mmol/L Liter Flow L/MIN Blood Gas Modality Inspired O2 % Sodium 123 L (136-145) mEq/L Potassium 4.6 H (3.5-4.5) mEq/L Chloride 84 L (98-109) mEq/L Carbon Dioxide 27 (19-29) mEq/L BUN 5 L (7-20) mg/dL Creatinine 0.56 L (0.57-1.11) mg/dL Est GFR ( Amer) > 60 (> 60) Est GFR (Non-Af Amer) > 60 (> 60) BUN/Creatinine Ratio 9 (6-26) Glucose 131 H (70-99) mg/dL Calculated Osmolality 255 L (280-300) Calcium 9.2 (8.6-10.8) mg/dL Total Bilirubin 0.3 (0.2-1.2) mg/dL Direct Bilirubin 0.2 (0.0-0.5) mg/dL Indirect Bilirubin 0.1 (0.0-1.2) mg/dL AST 8 (5-34) Units/L ALT < 6 (0-55) Units/L Alkaline Phosphatase 62 (38-126) Units/L Troponin I 0.00 (0-0.03) ng/mL Serum Total Protein 7.4 (6.0-8.3) g/dL Albumin 2.7 L (3.5-5.0) g/dL Globulin 4.7 H (2.4-3.5) g/dL Albumin/Globulin Ratio 0.6 L (1.1-2.2) - Radiology Data Radiology results reviewed: Yes I reviewed the patient's radiology results. Single view chest x-ray is performed. This demonstrates left lower lobe infiltrate. This is compared to imaging from yesterday. No other acute abnormality is seen. Impressions Chest X-Ray 10/14/16 13:18 IMPRESSION: 1. Cardiomegaly with vascular congestion. 2. Increased density involving the left lower lung zone. This may be secondary to focal airspace disease versus overlapping soft tissue. I would suggest follow-up PA and lateral chest x-ray for further evaluation. D/ / Bashir Morales MD / Bashir Morales MD Interpreting Provider: Bashir Morales MD - EKG Data EKG attestation: Yes I reviewed and interpreted this EKG. EKG shows normal: Reports: axis, intervals, QRS complexes, ST-T waves Rate: Reports: normal Rhythm: Reports: A.Fib QRS morphology: Reports: poor R-wave progression Interpretation: Reports: no acute changes
[2016-10-14] MEDS ORDERED: Azithromycin 250 MG TABLET PO ONE (13:18)
[2016-10-14] MEDS ORDERED: Ipratropium/Albuterol Neb 3 ML IH ONE (13:18)
[2016-10-14] MEDS ORDERED: 0.9 % Sodium Chloride 1,000 ML IVC SCH (13:30)
[2016-10-14 13:44] LABS: Hematocrit 30.9 % (35.3-44.9); Hemoglobin 10.6 g/dL (11.5-15.4); Lymphocytes # 1.2 K/mcL (0.6-4.6); Mean Corpuscular HGB Conc 34.3 g/dL (31.6-35.5); Mean Corpuscular Hemoglobin 31.3 pg (28.0-33.3); Mean Corpuscular Volume 91.2 fL (83.0-100.0); Mean Platelet Volume 11.3 fL (9.4-12.4); Red Blood Count 3.39 M/mcL (3.82-4.97); Red Cell Distribution Width 13.2 % (11.5-14.5)
[2016-10-14 13:52] LABS: INR 1.2; Prothrombin Time 13.3 Seconds (9.4-12.1)
[2016-10-14 13:53] LABS: Platelet Count 70 K/mcL (140-400)
[2016-10-14 13:55] LABS: Activated Partial Thrombo Time 26.9 Seconds (26.0-36.0)
[2016-10-14 14:01] LABS: ABG Base Excess 4.6 mEq/L (-2.0 to 3.0); ABG HCO3 29 mEq/L (21-27); ABG Oxygen Saturation 90 % (95-98); ABG PCO2 46 mmHg (35-45); ABG PH 7.41 pH Units (7.32-7.45); ABG PO2 59 mmHg (85-104); ABG TCO2 30.6 mEq/L (20-26)
[2016-10-14 14:02] LABS: Blood Gas FiO2 28 %; Blood Gas Liter Flow 2 L/MIN
[2016-10-14 14:04] LABS: Alanine Aminotransferase < 6 Units/L (0-55); Albumin 2.7 g/dL (3.5-5.0); Albumin/Globulin Ratio 0.6 (1.1-2.2); Alkaline Phosphatase 62 Units/L (38-126); Aspartate Amino Transferase 8 Units/L (5-34); BUN/Creatinine Ratio 9 (6-26); Bilirubin,Direct 0.2 mg/dL (0.0-0.5); Bilirubin,Indirect 0.1 mg/dL (0.0-1.2); Bilirubin,Total 0.3 mg/dL (0.2-1.2); Calcium 9.2 mg/dL (8.6-10.8); Carbon Dioxide 27 mEq/L (19-29); Chloride 84 mEq/L (98-109); Globulin 4.7 g/dL (2.4-3.5); Glucose 131 mg/dL (70-99); Osmolality,Calculated 255 (280-300); Potassium 4.6 mEq/L (3.5-4.5); Sodium 123 mEq/L (136-145); Total Protein 7.4 g/dL (6.0-8.3); eGFR For African Americans > 60 (> 60); eGFR For Non-African Americans > 60 (> 60)
[2016-10-14 14:05] LABS: Blood Urea Nitrogen 5 mg/dL (7-20)
[2016-10-14 14:34] LABS: Neutrophils # 3.8 K/mcL (1.6-8.9)
[2016-10-14 14:35] LABS: Platelet Estimate Slight Decrease (Normal)
[2016-10-14] MEDS ORDERED: Nystatin POWDER 30 GM BOTTLE TP PRN (14:54)
[2016-10-14] MEDS ORDERED: Acetaminophen/Butalbital/CaffeineTABLET PO PRN (14:54)
[2016-10-14] MEDS ORDERED: OLOPATADINE HCL OP PRN (14:54)
[2016-10-14] MEDS ORDERED: Acetaminophen 325 MG TABLET PO PRN (14:54)
[2016-10-14] MEDS ORDERED: Naloxone 0.4 MG/ML INJ IVP PRN (14:54)
[2016-10-14] MEDS ORDERED: Ondansetron 4 MG/2 ML VIAL IVP PRN (14:54)
[2016-10-14] MEDS ORDERED: MOM Conc 10 ML UD.LIQ PO PRN (14:54)
[2016-10-14] MEDS ORDERED: Albuterol 2.5 MG/3 ML NEBULIZER IH PRN (14:54)
[2016-10-14] MEDS ORDERED: NON-FORMULARY MEDICATION 1 EACH EACH (Cyanocobalamin (B-12) 1,000 MCG) IM SCH (14:54)
[2016-10-14] MEDS: methylPREDNISolone 125 MG/2 ML VIAL IVP SCH (16:21)
[2016-10-14] MEDS: Ipratropium/Albuterol Neb 3 ML IH SCH ×2 (16:24→22:09)
[2016-10-14] MEDS: Divalproex (24 HR) 500 MG TABLET PO SCH ×2 (16:24→20:50)
[2016-10-14] MEDS: 0.9 % Sodium Chloride 1,000 ML IVC SCH (16:24)
[2016-10-14] MEDS: Gabapentin 100 MG CAPSULE PO SCH ×2 (16:26→20:51)
[2016-10-14] MEDS: ALPRAZolam 0.5 MG TABLET PO SCH ×2 (16:27→20:49)
[2016-10-14] MEDS ORDERED: Simethicone 80 MG TAB.CHEW PO PRN (19:30)
[2016-10-14] MEDS ORDERED: Mag Hydrox/Al Hydrox/Simeth 30 ML UDC PO PRN (19:33)
[2016-10-14] MEDS: levETIRAcetam 250 MG TABLET PO SCH (20:48)
[2016-10-14] MEDS: Aspirin Enteric Coated 81 MG Tablet PO SCH (20:50)
--- NOTE | 2016-10-14 22:15 | Internal Med History&Physical ---
Date of Encounter: 10/14/16 Time of Encounter: 20:10 Assessment and Plan (1) Acute exacerbation of chronic obstructive pulmonary disease Current visit: Yes Status: Acute We will continue the Solu-Medrol (2) Community acquired pneumonia Current visit: Yes Status: Acute Continue azithromycin and Rocephin for CBC with differential Qualifiers: Laterality: left Lung location: lower lobe of lung Qualified Code(s): J18.1 - Lobar pneumonia, unspecified organism (3) Hyponatremia Current visit: Yes Status: Acute IV hydration and fluid restriction (4) Congestive heart failure Current visit: Yes Status: Acute We will continue Bumex and will follow up BNP and a BMP Qualifiers: Congestive heart failure type: combined Congestive heart failure chronicity : chronic Qualified Code(s): I50.42 - Chronic combined systolic (congestive) and diastolic (congestive) heart failure (5) Morbid obesity Current visit: Yes Status: Chronic Answer questions about diet and activity, (6) Seizure disorder Current visit: Yes Status: Chronic Continue Keppra (7) Diabetes mellitus Current visit: Yes Status: Suspected She reports not knowing she had diabetes, discussed with her about refined foods and dietary questions Qualifiers: Diabetes mellitus type: type 2 Diabetes mellitus complication status: without complication Diabetes mellitus fpc insulin use: without fpc use Qualified Code(s): E11.9 - Type 2 diabetes mellitus without complications (8) Obesity hypoventilation syndrome Current visit: Yes Status: Acute She needs to take 10 deep breaths and consider a incentive spirometer to help (9) HTN (hypertension) Current visit: No Status: Chronic Continue monitoring continue carvedilol Qualifiers: Hypertension type: essential hypertension Qualified Code(s): I10 - Essential (primary) hypertension (10) Coronary artery disease Current visit: Yes Status: Chronic Continue Imdur Qualifiers: Coronary Disease-Associated Artery/Lesion type: unspecified vessel or lesion type [place] vs. transplanted heart: unspecified whether [place] or transplanted heart Associated angina: without angina Qualified Code(s): I25.10 - Atherosclerotic heart disease of [place] coronary artery without angina pectoris Internal Medicine - H&P: HPI Admitted From: Home Plans for Post Hospital Care: Home (Or inpatient rehabilitation) History of present illness: Ms. Ramires is a 56 year old female resident emergency room with a couple days of cough. He saw him he might not in her symptoms and was given a Z-Simón, oral steroid, neb treatments but she progressed. The x-ray that was ordered outpatient showed left lower lobe pneumonia. Says she has felt outpatient treatment she is being admitted. She is on 3 L of oxygen routinely at home nasal cannula and her O2 sats were 89% in the ER they gave her IV Solu-Medrol, IV azithromycin and IV Rocephin. She asked about very minimal use in the future. We discussed deep breath and some spirometer, slowly increasing activity exercise, eating fresh fruits like kiwi and oranges and vitamin C. Answered her questions about refined foods and fiber relation to high blood sugars. Addressed her concerns. She is from home but she is not sure she will be strong enough to return home she states she might need to do some rehabilitation. He has ongoing cough and sharp chest pain from it. She came to ER she was having some chills nausea dry heaves headache, lightheadedness. She was short of breath. Rest review of systems was negative. We discussed the usual hospital course and treatments. Past Med Surg Social Fam HX - Past Medical History Medical history: arthritis, atrial fibrillation, CHF, COPD (O2 3 L), DVT, diabetes, hyperlipidemia, hypertension, migraine (Hyponatremia, environmental allergies, bladder instability, vitamin B12 deficiency, a), myocardial infarction, seizures, thyroid disease (Hypothyroidism), other (Environmental allergies, vitamin B12 deficiency, morbid obesity, Parkinson's disease, hyponatremia) Psychiatric history: anxiety, depression, other - Past Surgical History Surgical History: hysterectomy, other (D&C, bladder tack, adhesiolysis, cyst removed from the right second toe, cardiac catheterizations) - Social History Smoking Status: Former smoker Smokeless Tobacco Status: No Alcohol use: none Drug use: none - Family History Father Living Status: (Prostate cancer) Mother Living Status: (Massive heart attack at age 54) Internal Medicine - H&P: Meds Butalb/Acetaminophen/Caffeine [Fioricet 50-300-40 mg Capsule] 1 each PO Q4HR PRN 05/06/15 [History] Carvedilol [Coreg] 6.25 mg PO BIDWM 05/06/15 [History] Cholecalciferol (Vitamin D3) [Vitamin D3] 4,000 unit PO DAILY 05/06/15 [History] Divalproex Sodium [Depakote] 500 mg PO TID 05/06/15 [History] Gabapentin [Neurontin] 300 mg PO TID 05/06/15 [History] Isosorbide MONOnitrate [Isosorbide Mononitrate ER] 120 mg PO DAILY 05/06/15 [ History] LevETIRAcetam [Keppra] 500 mg PO BID 05/06/15 [History] Levothyroxine Sodium [Tirosint] 112 mcg PO DAILY 05/06/15 [History] Nystatin POWDER [Nystop] 100,000 unit TP DAILY PRN 05/06/15 [History] Olopatadine HCl [Pataday] 1 pack BOTH EYES DAILY PRN 05/06/15 [History] Oxybutynin Chloride [Ditropan Xl] 10 mg PO BID 05/06/15 [History] Oxygen 3 appl .ROUTE AD 05/06/15 [History] Phenytoin Sodium Extended [Phenytek] 200 mg PO TID 05/06/15 [History] Potassium Chloride [Klor-Con] 20 meq PO TID 05/06/15 [History] Pravastatin Sodium [Pravachol] 40 mg PO DAILY 05/06/15 [History] Albuterol Sulfate [Proair Hfa] 2 puff IH Q4H PRN 05/07/15 [History] Fluticasone/Salmeterol [Advair Hfa 230-21 Mcg Inhaler] 2 puff IH BID 05/07/15 [ History] Tiotropium [Spiriva] 18 mcg IH DAILY 05/07/15 [History] ALPRAZolam [Xanax 0.5 MG Tablet] 0.5 mg PO QID 08/03/15 [History] Albuterol Neb [AccuNeb] 0.63 mg IH TID 08/03/15 [History] Montelukast [Singulair] 10 mg PO DAILY 08/03/15 [History] Roflumilast [Daliresp] 500 mcg PO DAILY 11/30/15 [History] Cyanocobalamin (B-12) [Vitamin B12] 1,000 mcg IM QMONTH #12 vial 04/10/16 [Rx] Bumetanide [Bumex] 2 mg PO DAILY 365 Days 05/05/16 [Rx] Aspirin [Lo-Dose Aspirin EC] 81 mg PO HS 06/27/16 [History] Lactobacillus [Culturelle] 1 each PO DAILY 06/27/16 [History] Folic Acid 1 mg PO DAILY #90 tablet 09/26/16 [Rx] Azithromycin [Zithromax Tri-Simón] 500 mg PO DAILY 10/14/16 [History] Cefdinir [Omnicef] 300 mg PO BID 10/14/16 [History] predniSONE [PredniSONE] 20 mg PO DAILY 10/14/16 [History] 3 Allergy/AdvReac Type Severity Reaction Status Date / Time haloperidol [From Haldol] AdvReac Numbness Verified 03/21/16 14:04 levofloxacin [From Levaquin] AdvReac Seizure Verified 03/21/16 14:04 nitrofurantoin AdvReac Rash Verified 10/14/16 22:25 [From Macrodantin] ziprasidone [From Geodon] AdvReac Rash Verified 03/21/16 14:04 All Systems PM: A 10-system review of systems was performed and is negative for pertinent findings except as documented above in the HPI. - Constitutional Vitals: Temp Pulse Resp BP Pulse Ox 97.9 F 91 19 129/64 91 10/14/16 18:31 10/14/16 18:31 10/14/16 18:31 10/14/16 18:31 10/14/16 18:31 - Head Head exam: Present: atraumatic, normocephalic - Eye Eye exam: Present: PERRL, conjuntiva pink, sclera anicteric Pupils: Present: PERRL - Neck Neck exam general surgery: Present: supple, trachea midline. Absent: lymphadenopathy - Respiratory Respiratory exam: Present: CTAB, respiratory distress, wheezes. Absent: accessory muscle use, rales, rhonchi Additional comments: Episodic coughing spells - Cardiovascular Cardiovascular exam: Present: RRR, +S1, +S2. Absent: diastolic murmur, gallop, rubs, systolic murmur - GI/Abdominal GI/Abdominal exam: Present: normal bowel sounds, soft, no peritoneal signs. Absent: distended, tenderness - Extremities Exam Extremities exam: Present: warm. Absent: calf tenderness, cyanotic, pedal edema - Neurological Exam Neurological exam: Present: CN II-XII intact, oriented X3, no focal deficits. Absent: facial droop, speech deficit - Skin Skin exam: Present: dry, intact Internal Med - H&P Results - Labs CBC & Chem 7: 10/14/16 13:36 10/14/16 13:36
[2016-10-15] MEDS: methylPREDNISolone 125 MG/2 ML VIAL IVP SCH ×2 (00:42→10:18)
[2016-10-15] MEDS: 0.9 % Sodium Chloride 1,000 ML IVC SCH ×2 (00:43→17:30)
[2016-10-15] MEDS: Ipratropium/Albuterol Neb 3 ML IH SCH ×2 (03:38→09:00)
[2016-10-15 04:04] LABS: Blood Gas Liter Flow 4 L/MIN
[2016-10-15 04:10] LABS: ABG PCO2 49 mmHg (35-45); ABG PH 7.38 pH Units (7.32-7.45); ABG PO2 83 mmHg (85-104)
[2016-10-15 04:11] LABS: ABG Base Excess 3.5 mEq/L (-2.0 to 3.0); ABG HCO3 29 mEq/L (21-27); ABG Oxygen Saturation 96 % (95-98); ABG TCO2 30.2 mEq/L (20-26)
[2016-10-15 06:08] LABS: Basophils % 0.2 %; Hematocrit 31.2 % (35.3-44.9); Hemoglobin 10.7 g/dL (11.5-15.4); Immature Granulocytes % 0.5 % (0-4); Lymphocytes # 1.1 K/mcL (0.6-4.6); Lymphocytes % 17.4 %; Mean Corpuscular HGB Conc 34.3 g/dL (31.6-35.5); Mean Corpuscular Hemoglobin 30.9 pg (28.0-33.3); Mean Corpuscular Volume 90.2 fL (83.0-100.0); Mean Platelet Volume 11.7 fL (9.4-12.4); Monocytes # 0.8 K/mcL (0.0-1.3); Monocytes % 12.1 %; Neutrophils # 4.4 K/mcL (1.6-8.9); Nucleated Red Blood Cells 0.3 /100 WBC (0); Red Blood Count 3.46 M/mcL (3.82-4.97); Red Cell Distribution Width 12.9 % (11.5-14.5); Segmented Neutrophils % 69.8 %
[2016-10-15 06:18] LABS: Platelet Count 84 K/mcL (140-400)
[2016-10-15 06:27] LABS: BUN/Creatinine Ratio 9 (6-26); Carbon Dioxide 27 mEq/L (19-29); Chloride 83 mEq/L (98-109); Glucose 137 mg/dL (70-99); Osmolality,Calculated 253 (280-300); Potassium 4.5 mEq/L (3.5-4.5); Sodium 122 mEq/L (136-145); eGFR For African Americans > 60 (> 60); eGFR For Non-African Americans > 60 (> 60)
[2016-10-15 06:29] LABS: Blood Urea Nitrogen 5 mg/dL (7-20)
[2016-10-15] MEDS: ALPRAZolam 0.5 MG TABLET PO SCH ×4 (10:23→22:22)
[2016-10-15] MEDS: Azithromycin 250 MG TABLET PO SCH (10:23)
[2016-10-15] MEDS: Lactobacillus 1 EACH CAP.SPRINK PO SCH (10:24)
[2016-10-15] MEDS: Isosorbide MONOnitrate (24 HR) 60 MG TAB.ER.24H PO SCH (10:26)
[2016-10-15] MEDS: Cholecalciferol (D-3) 1,000 UNIT TABLET PO SCH (10:26)
[2016-10-15] MEDS: Divalproex (24 HR) 500 MG TABLET PO SCH ×3 (10:26→22:22)
[2016-10-15] MEDS: Gabapentin 100 MG CAPSULE PO SCH (10:27)
[2016-10-15] MEDS: Bumetanide 1 MG TABLET PO SCH (10:28)
[2016-10-15] MEDS: Folic Acid 1 MG TABLET PO SCH (10:29)
[2016-10-15] MEDS: levETIRAcetam 250 MG TABLET PO SCH ×2 (10:29→22:21)
--- NOTE | 2016-10-15 15:27 | Internal Med Progress Note ---
Date of Encounter: 10/15/16 Time of Encounter: 15:15 - Assessment and plan (1) Pneumonia Current Visit: No Status: Acute Assessment and plan: October 15. Continue Rocephin, Zithromax, and lactobacillus. Anticipate discharge home tomorrow if stable. Qualifiers: Pneumonia type: due to unspecified organism Laterality: bilateral Lung location: lower lobe of lung Qualified Code(s): J18.9 - Pneumonia, unspecified organism (2) Diabetes mellitus Current Visit: Yes Status: Suspected Assessment and plan: October 15. Hemoglobin A1c was 5.1% on 05/05/2016. We will recheck in a.m. Qualifiers: Diabetes mellitus type: type 2 Diabetes mellitus complication status: without complication Diabetes mellitus [facility] insulin use: without [facility] use Qualified Code(s): E11.9 - Type 2 diabetes mellitus without complications (3) Hyponatremia Current Visit: Yes Status: Acute Assessment and plan: October 15. Suspect due to SIADH and/ or diuretic use. We will continue treatment for pneumonia and recheck labs in a.m. - Subjective Interval history: October 15. She has no new complaints and states she feels better. - Constitutional Vitals: Temp Pulse Resp BP Pulse Ox 97.9 F 87 18 126/76 92 10/15/16 15:08 10/15/16 15:08 10/15/16 15:08 10/15/16 15:08 10/15/16 15:08 Exam: She is resting comfortably in bed. Her affect is cheerful. Heart is regular without murmurs gallops or ectopics. Lungs are clear anteriorly. Extremities show no edema. Internal Medicine: Result - Labs CBC & Chem 7: 10/15/16 05:20 10/15/16 05:20 Labs: Short CBC 10/15/16 Range/Units 05:20 WBC 6.3 (4.3-11.1) K/mcL Hgb 10.7 L (11.5-15.4) g/dL Hct 31.2 L (35.3-44.9) % Plt Count 84 L (140-400) K/mcL Neutrophils # 4.4 (1.6-8.9) K/mcL BMP 10/15/16 05:20 Sodium 122 L Potassium 4.5 Chloride 83 L Carbon Dioxide 27 BUN 5 L Creatinine 0.57 Glucose 137 H Calcium 9.0 - ABG Interpretation ABG results: ABG ABG pH 7.38 pH Units (7.32-7.45) 10/15/16 04:00 ABG pCO2 49 mmHg (35-45) H 10/15/16 04:00 ABG pO2 83 mmHg (85-104) L 10/15/16 04:00 ABG O2 Saturation 96 % (95-98) 10/15/16 04:00 PT/INR, D-dimer PT 13.3 Seconds (9.4-12.1) H 10/14/16 13:36 Consult Discharge Plan - Plan Referrals: Arnold Meraz DO [Primary Care Provider] - 1 week
[2016-10-15] MEDS: Gabapentin 300 MG CAPSULE PO SCH ×2 (17:36→22:21)
[2016-10-15] MEDS: Benzonatate 100 MG CAPSULE PO PRN ×2 (17:42→22:22)
[2016-10-15] MEDS: Aspirin Enteric Coated 81 MG Tablet PO SCH (22:21)
[2016-10-16 05:14] LABS: Basophils % 0.3 %; Eosinophils % 0.6 %; Hematocrit 30.2 % (35.3-44.9); Hemoglobin 10.4 g/dL (11.5-15.4); Immature Granulocytes % 0.3 % (0-4); Lymphocytes # 2.3 K/mcL (0.6-4.6); Lymphocytes % 33.7 %; Mean Corpuscular HGB Conc 34.4 g/dL (31.6-35.5); Mean Corpuscular Hemoglobin 30.9 pg (28.0-33.3); Mean Corpuscular Volume 89.6 fL (83.0-100.0); Mean Platelet Volume 11.8 fL (9.4-12.4); Monocytes # 1.4 K/mcL (0.0-1.3); Monocytes % 21.3 %; Neutrophils # 2.9 K/mcL (1.6-8.9); Nucleated Red Blood Cells 0.3 /100 WBC (0); Platelet Count 100 K/mcL (140-400); Red Blood Count 3.37 M/mcL (3.82-4.97); Segmented Neutrophils % 43.8 %
[2016-10-16 05:35] LABS: BUN/Creatinine Ratio 15 (6-26); Blood Urea Nitrogen 8 mg/dL (7-20); Calcium 8.9 mg/dL (8.6-10.8); Carbon Dioxide 26 mEq/L (19-29); Chloride 85 mEq/L (98-109); Glucose 106 mg/dL (70-99); Osmolality,Calculated 259 (280-300); Potassium 3.5 mEq/L (3.5-4.5); Sodium 125 mEq/L (136-145); eGFR For African Americans > 60 (> 60); eGFR For Non-African Americans > 60 (> 60)
[2016-10-16 06:00] LABS: Platelet Estimate Normal (Normal)
[2016-10-16] MEDS: Gabapentin 300 MG CAPSULE PO SCH (08:50)
[2016-10-16] MEDS: levETIRAcetam 250 MG TABLET PO SCH (08:50)
[2016-10-16] MEDS: Divalproex (24 HR) 500 MG TABLET PO SCH (08:50)
[2016-10-16] MEDS: Lactobacillus 1 EACH CAP.SPRINK PO SCH (08:51)
[2016-10-16] MEDS: Azithromycin 250 MG TABLET PO SCH (08:52)
[2016-10-16] MEDS: Bumetanide 1 MG TABLET PO SCH (08:53)
[2016-10-16] MEDS: ALPRAZolam 0.5 MG TABLET PO SCH (08:54)
[2016-10-16] MEDS: Isosorbide MONOnitrate (24 HR) 60 MG TAB.ER.24H PO SCH (08:54)
[2016-10-16] MEDS: Folic Acid 1 MG TABLET PO SCH (08:55)
[2016-10-16] MEDS: Cholecalciferol (D-3) 1,000 UNIT TABLET PO SCH (08:55)
--- NOTE | 2016-10-16 10:38 | Discharge Summary ---
Date of Encounter: 10/16/16 Time of Encounter: 10:25 - Discharge Diagnosis (1) Pneumonia Priority: Primary Status: Acute Qualifiers: Pneumonia type: due to unspecified organism Laterality: bilateral Lung location: lower lobe of lung Qualified Code(s): J18.9 - Pneumonia, unspecified organism (2) Diabetes mellitus Priority: Secondary Status: Suspected Qualifiers: Diabetes mellitus type: type 2 Diabetes mellitus complication status: without complication Diabetes mellitus care home insulin use: without care home use Qualified Code(s): E11.9 - Type 2 diabetes mellitus without complications (3) Hyponatremia Priority: Secondary Status: Acute - Discharge Medications Prescriptions: Cefuroxime PO [Ceftin] 500 mg PO Q12HR #6 tablet Azithromycin [Zithromax] 250 mg PO DAILY #3 tablet Lactobacillus [Culturelle] 1 each PO BID #6 cap.sprink Home Medications: Butalb/Acetaminophen/Caffeine [Fioricet 50-300-40 mg Capsule] 1 each PO Q4HR PRN 05/06/15 [History] Carvedilol [Coreg] 6.25 mg PO BIDWM 05/06/15 [History] Cholecalciferol (Vitamin D3) [Vitamin D3] 4,000 unit PO DAILY 05/06/15 [History] Divalproex Sodium [Depakote] 500 mg PO TID 05/06/15 [History] Gabapentin [Neurontin] 300 mg PO TID 05/06/15 [History] Isosorbide MONOnitrate [Isosorbide Mononitrate ER] 120 mg PO DAILY 05/06/15 [ History] LevETIRAcetam [Keppra] 500 mg PO BID 05/06/15 [History] Levothyroxine Sodium [Tirosint] 112 mcg PO DAILY 05/06/15 [History] Nystatin POWDER [Nystop] 100,000 unit TP DAILY PRN 05/06/15 [History] Olopatadine HCl [Pataday] 1 pack BOTH EYES DAILY PRN 05/06/15 [History] Oxybutynin Chloride [Ditropan Xl] 10 mg PO BID 05/06/15 [History] Oxygen 3 appl .ROUTE AD 05/06/15 [History] Phenytoin Sodium Extended [Phenytek] 200 mg PO TID 05/06/15 [History] Potassium Chloride [Klor-Con] 20 meq PO TID 05/06/15 [History] Pravastatin Sodium [Pravachol] 40 mg PO DAILY 05/06/15 [History] Albuterol Sulfate [Proair Hfa] 2 puff IH Q4H PRN 05/07/15 [History] Fluticasone/Salmeterol [Advair Hfa 230-21 Mcg Inhaler] 2 puff IH BID 05/07/15 [ History] Tiotropium [Spiriva] 18 mcg IH DAILY 05/07/15 [History] ALPRAZolam [Xanax 0.5 MG Tablet] 0.5 mg PO QID 08/03/15 [History] Albuterol Neb [AccuNeb] 0.63 mg IH TID 08/03/15 [History] Montelukast [Singulair] 10 mg PO DAILY 08/03/15 [History] Roflumilast [Daliresp] 500 mcg PO DAILY 11/30/15 [History] Cyanocobalamin (B-12) [Vitamin B12] 1,000 mcg IM QMONTH #12 vial 04/10/16 [Rx] Bumetanide [Bumex] 2 mg PO DAILY 365 Days 05/05/16 [Rx] Aspirin [Lo-Dose Aspirin EC] 81 mg PO HS 06/27/16 [History] Lactobacillus [Culturelle] 1 each PO DAILY 06/27/16 [History] Folic Acid 1 mg PO DAILY #90 tablet 09/26/16 [Rx] Azithromycin [Zithromax Tri-Simón] 500 mg PO DAILY 10/14/16 [History] Cefdinir [Omnicef] 300 mg PO BID 10/14/16 [History] predniSONE [PredniSONE] 20 mg PO DAILY 10/14/16 [History] Azithromycin [Zithromax] 250 mg PO DAILY #3 tablet 10/16/16 [Rx] Cefuroxime PO [Ceftin] 500 mg PO Q12HR #6 tablet 10/16/16 [Rx] Lactobacillus [Culturelle] 1 each PO BID #6 cap.sprink 10/16/16 [Rx] Allergies/Adverse Reactions: 3 Allergy/AdvReac Type Severity Reaction Status Date / Time haloperidol [From Haldol] AdvReac Numbness Verified 03/21/16 14:04 levofloxacin [From Levaquin] AdvReac Seizure Verified 03/21/16 14:04 nitrofurantoin AdvReac Rash Verified 10/14/16 22:25 [From Macrodantin] ziprasidone [From Geodon] AdvReac Rash Verified 03/21/16 14:04 Date of admission: 10/14/16 14:52 Primary care physician: Arnold Meraz DO - Patient Status Disposition: Home, Self-Care Condition: Fair Overall status at discharge: patient is progressing back to baseline - Discharge Instructions Follow Up With: Arnold Meraz DO [Primary Care Provider] - 1 week - Diet and Activity Activity: resume usual activities as tolerated Diet: advance to your usual diet Hospital course: Ms. Ramires is a 56 year old female who presented to emergency room the afternoon of October 13 with cough and dyspnea. She was found to have evidence of pneumonia and was admitted to [facility] for ongoing care needs. Initial orders were written by emergency room physician. Dr. Moore saw her the afternoon of October 14 and performed the history and physical. I assumed care on October 15. She was given IV Rocephin and Zithromax. Steroids were initially used but these were discontinued prior to discharge. WBC remained normal throughout her hospitalization with resolution of the left shift. She remained afebrile throughout her hospital stay. Her dyspnea improved and when I saw her on October 16 she felt stable for discharge home. She will continue with antibiotics and probiotics for 3 additional days at discharge. Hyponatremia improved with sodium rising 125 on the day of discharge. I suspect her hyponatremia is due to use of Bumex with possible SIADH from pneumonia. Her PCP can monitor this. She will follow with Dr. Meraz within 1 week. - Time Spent with Patient Total time spent providing and/or coordinating discharge services: - Constitutional Vitals: Temp Pulse Resp BP Pulse Ox 97.8 F 114 20 146/79 94 10/16/16 06:29 10/16/16 06:29 10/16/16 06:29 10/16/16 06:29 10/16/16 06:29
[2016-10-16 10:45] VITALS: BP 110/62
--- NOTE | 2016-10-18 14:42 | Electrocardiograph Report ---
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
== END 2016-10-16 13:05 | disposition home or self-care (01) ==
LOC: INPPIK 13:10 → EMEROOPIK 13:10 → INPPIK 15:01
PROVIDERS: ADMIT Family Medicine; ATTEND Internal Medicine